=== PATIENT | male | born 1995 | race Caucasian/White ===

== ENCOUNTER 2017-03-29 17:26 | Emergency (ER) | payer OTHER ==
[2017-03-29 17:40] VITALS: BMI 37.0
[2017-03-29 17:47] VITALS: BP 125/83; RESP 18; TEMP 99.2
[2017-03-29] MEDS ORDERED: guaiFENesin 100 mg/5 ml Syrup UD PO STA (18:08)
[2017-03-29] MEDS ORDERED: guaiFENesin DM 100 mg-10 mg/5 ml UD ONE (18:14)
--- NOTE | 2017-03-29 18:14 | C.PDOC ---
History Of Present Illness 22 y/o male presents to the ED with complaints of nasal congestion, sore throat , dry nonproductive cough x3 days. Pt also reports subjective fever. Pt has not taken any cold or cough medicine. Pt smokes 1/2 ppd and marijuana. Girlfriend reports snoring and sleep apnea, daytime somnolence, poor sleep, trouble concentrating. Pt works in a warehouse. Denies chest pain, SOB, or any other complaints. Time Seen by Provider: 03/29/17 18:03 Chief Complaint (Nursing): Chest Pain History Per: Patient History/Exam Limitations: no limitations Onset/Duration Of Symptoms: Days Current Symptoms Are (Timing): Still Present Location Of Pain: Throat Associated Symptoms: Fever, Sore Throat, Cough, Nasal Congestion. denies: Sputum Severity: Mild Recent travel outside of the [place]: No Past Medical History Reviewed: Historical Data, Nursing Documentation, Vital Signs Vital Signs: Last Vital Signs Temp 99.2 F 03/29/17 17:41 Pulse 35 L 03/29/17 18:35 Resp 18 03/29/17 18:35 BP 125/83 03/29/17 17:41 Pulse Ox 97 03/29/17 18:35 - Medical History PMH: Asthma Family History: States: Unknown Family Hx - Social History Hx Tobacco Use: Yes Hx Alcohol Use: No Hx Substance Use: Yes - Immunization History Hx Tetanus Toxoid Vaccination: Yes Hx Influenza Vaccination: No Hx Pneumococcal Vaccination: No Review Of Systems Except As Marked, All Systems Reviewed And Found Negative. Constitutional: Positive for: Fever ENT: Positive for: Nose Congestion, Throat Pain Cardiovascular: Negative for: Chest Pain Respiratory: Positive for: Cough. Negative for: Shortness of Breath, Sputum Physical Exam - Physical Exam Appears: Non-toxic, No Acute Distress, Other (morbidly obese) Skin: Warm, Dry, No Rash Head: Atraumatic, Normacephalic Ear(s): Bilateral: Normal Nose: Normal Oral Mucosa: Moist Throat: No Erythema, No Exudate, Other (small oropharynx) Neck: Normal, Normal ROM, Supple Chest: Tenderness (digitally reproducible parasternal chest wall tenderness) Cardiovascular: Rhythm Regular, No Murmur Respiratory: No Rales, Rhonchi (scant), Wheezing (scant) Gastrointestinal/Abdominal: Normal Exam, Soft, No Tenderness Extremity: Bilateral: Atraumatic Neurological/Psych: Oriented x3, Normal Speech ED Course And Treatment O2 Sat by Pulse Oximetry: 98 (room air) Pulse Ox Interpretation: Normal Medical Decision Making Medical Decision Making: viral syndrome small OP s/s of sleep apnea corroborated by girlfriend classic s/s of ARIEL Disposition Doctor Will See Patient In The: Office Counseled Patient/Family Regarding: Studies Performed, Diagnosis - Disposition Referrals: [facility] [Outside] [facility] [Outside] Hitesh Martin MD [Staff Provider] - Disposition: HOME/ ROUTINE Disposition Time: 18:13 Condition: GOOD Additional Instructions: Dayquil and Nyquil for symptoms of viral syndrome Take Regularly and adequately. Curb smoking as much as possible to help relieve bronchial irritation Call Dr. Martin- Sleep Oil Deliverer- to arrange for a sleep study Will help with your concentration, weight loss, and to get restful sleep Return to ED or our [facility] as needed. Instructions: Viral Syndrome (ED) Forms: Work Excuse - Clinical Impression Clinical Impression: Chest discomfort, Viral syndrome, Sleep apnea in adult - Scribe Statement The provider has reviewed the documentation as recorded by the Robbinibcecy garcia Provider Attestation: All medical record entries made by the Scribe were at my direction and personally dictated by me. I have reviewed the chart and agree that the record accurately reflects my personal performance of the history, physical exam, medical decision making, and the department course for this patient. I have also personally directed, reviewed, and agree with the discharge instructions and disposition.
[2017-03-29 18:43] VITALS: PULSE 35
[2017-03-29 19:06] VITALS: O2SAT 98
--- NOTE | 2017-04-02 12:39 | CARD ---
APPROVED REPORT EKG Measurement Heart [id number] <Conclusion> Sinus bradycardia Nonspecific intraventricular conduction delay Borderline ECG
== END 2017-03-29 18:43 | disposition home or self-care (01) ==
LOC: C.ER 17:26
DX: B34.9 Viral infection, unspecified (principal); R07.89 Other chest pain; G47.30 Sleep apnea, unspecified

== ENCOUNTER 2017-09-22 10:59 | Emergency (ER) | payer OTHER ==
[2017-09-22 11:00] VITALS: BMI 37.0
[2017-09-22 11:17] VITALS: RESP 18
[2017-09-22] MEDS ORDERED: Albuterol-Ipratrop 3 mg / 0.5 (3 ml) UD INH STA ×2 (11:29→12:05)
[2017-09-22] MEDS ORDERED: Acetaminophen 160 mg/5 ml UD PO STA (11:29)
--- NOTE | 2017-09-22 11:37 | C.PDOC ---
History Of Present Illness 22 y/o male, with history of asthma, presents to the ER for evaluation of nasal congestion, left sided facial pressure, green nasal discharge, and cough which have been present for 3 days. Patient denies having a fever. Patient has no other medical complaints. Time Seen by Provider: 09/22/17 11:18 Chief Complaint (Nursing): Cough, Cold, Congestion History Per: Patient History/Exam Limitations: no limitations Onset/Duration Of Symptoms: Days Current Symptoms Are (Timing): Still Present Severity: Moderate Past Medical History Reviewed: Historical Data, Nursing Documentation, Vital Signs Vital Signs: Last Vital Signs Temp 97.8 F 09/22/17 13:12 Pulse 53 L 09/22/17 13:12 Resp 18 09/22/17 13:12 BP 118/75 09/22/17 13:12 Pulse Ox 100 09/23/17 11:51 - Medical History PMH: Asthma Surgical History: No Surg Hx Family History: States: No Known Family Hx - Social History Hx Tobacco Use: Yes Hx Alcohol Use: Yes Hx Substance Use: No - Immunization History Hx Tetanus Toxoid Vaccination: Yes Hx Influenza Vaccination: No Hx Pneumococcal Vaccination: No Review Of Systems Constitutional: Negative for: Fever, Chills ENT: Positive for: Nose Discharge (green nose discharge), Nose Congestion Respiratory: Positive for: Cough, Sputum (yellow sputum) Physical Exam - Physical Exam Appears: No Acute Distress, Other (WDWN) Skin: Normal Color, Warm Head: Atraumatic, Normacephalic, Tenderness (frontal sinuses tender) Eye(s): bilateral: Normal Inspection, PERRL, EOMI Ear(s): Bilateral: Normal Nose: Other (nose looks congested, boggy turbinates) Oral Mucosa: Moist Tongue: Normal Appearing Lips: Normal Appearing Throat: No Erythema, No Exudate Neck: Supple Lymphatic: No Adenopathy Cardiovascular: Rhythm Regular, No Murmur Respiratory: No Accessory Muscle Use, No Rales, No Rhonchi, Wheezing (bilateral scattered wheezing) Extremity: Normal ROM Neurological/Psych: Oriented x3, Normal Speech, Normal Cognition ED Course And Treatment O2 Sat by Pulse Oximetry: 100 (RA) Pulse Ox Interpretation: Normal Medical Decision Making Medical Decision Making: Impression: Cough and Congestion Plan: --Nebulizer Treatment --Tylenol 102 pm pt feeling much better after tylenol and nebulizer treatments. pt has inhaler at home. pt has mild scant wheezing that clears with productive cough; will d/c with steroids, z-paolo and sudafed, f/u pmd. Disposition Counseled Patient/Family Regarding: Diagnosis, Need For Followup, Rx Given - Disposition Referrals: [facility] [Outside] Disposition: HOME/ ROUTINE Disposition Time: 13:08 Condition: IMPROVED Additional Instructions: Please use your inhaler 2 puffs every 4-6 hours as needed. Take Zithromax as prescribed. Tylenol or Motrin for pain. Take sudafed 60 mg bymouth every 6 hours for nasal congestion. Some people get palpitations from this medicine- stop tasking it if you do. Take steroids as prescribed. Prescriptions: Acetaminophen [Tylenol 325mg tab] 650 mg PO Q6 #50 tab Azithromycin [Z-Paolo] 250 mg PO DAILY #6 tab predniSONE [predniSONE Tab] 2 tab PO DAILY #8 tab Pseudoephedrine HCl [Sudafed] 60 mg PO Q6 #30 tablet Instructions: Upper Respiratory Infection (ED) Forms: General Discharge Instructions, [facility] (Monegasque), Work Excuse - Clinical Impression Clinical Impression: Upper respiratory infection, Asthma exacerbation - PA / ART STUDIO TEACHER / Resident Statement MD/DO has reviewed & agrees with the documentation as recorded. - Scribe Statement The provider has reviewed the documentation as recorded by the Robbinibe Mark Mejía All medical record entries made by the Sosa were at my direction and personally dictated by me. I have reviewed the chart and agree that the record accurately reflects my personal performance of the history, physical exam, medical decision making, and the department course for this patient. I have also personally directed, reviewed, and agree with the discharge instructions and disposition.
[2017-09-22] MEDS ORDERED: Albuterol-Ipratrop 3 mg / 0.5 (3 ml) UD ONE ×2 (11:38→12:22)
[2017-09-22 13:13] VITALS: BP 118/75; PULSE 53; TEMP 97.8
[2017-09-22 13:19] VITALS: O2SAT 100
== END 2017-09-22 13:26 | disposition home or self-care (01) ==
LOC: C.ER 10:59
DX: J06.9 Acute upper respiratory infection, unspecified (principal); J45.901 Unspecified asthma with (acute) exacerbation; Z87.891 Personal history of nicotine dependence

== ENCOUNTER 2018-10-14 09:56 | Emergency (ER) | payer OTHER ==
[2018-10-14 09:57] VITALS: BMI 37.0
[2018-10-14 10:05] VITALS: BP 150/85; PULSE 96; RESP 20; TEMP 99.2; O2SAT 96
--- NOTE | 2018-10-14 10:52 | C.PDOC ---
History Of Present Illness Mr. Diaz is a 20 year old male with a PMHx of Asthma who presents with complaints of a tender bump he noticed while cleaning himself post bowel movement. He states the bump is firm and tender to touch. He denies ever having this complaint before. He denies any fever, chills, SOB, headache, chest pain, palpitations, abdominal pain, nausea, vomiting, changes in bowel habits, or urinary symptoms. ROS: As stated above PMHx: Asthma SocialHx 5 cigarettes daily for 5 years. Social etoH use, denies illicit drug use Allergies: NKDA Meds: Unspecified rescue inhaler FamHx: Diabetes - Uncle PSHx: Denies. PMD: Dr. Wu on [address] in [place] Time Seen by Provider: 10/14/18 10:41 Chief Complaint (Nursing): Abnormal Skin Integrity History Per: Patient Past Medical History Reviewed: Nursing Documentation, Vital Signs Vital Signs: Last Vital Signs Temp 99.2 F 10/14/18 10:04 Pulse 96 H 10/14/18 10:04 Resp 20 10/14/18 10:04 BP 150/85 10/14/18 10:04 Pulse Ox 96 10/14/18 10:04 - Medical History PMH: Asthma Family History: States: Unknown Family Hx - Social History Hx Tobacco Use: Yes Hx Alcohol Use: Yes Hx Substance Use: No - Immunization History Hx Tetanus Toxoid Vaccination: Yes Hx Influenza Vaccination: No Hx Pneumococcal Vaccination: No Review Of Systems Except As Marked, All Systems Reviewed And Found Negative. (As per HPI) Physical Exam - Physical Exam Appears: Well, Non-toxic, No Acute Distress Skin: Warm, Other Head: Atraumatic, Normacephalic Eye(s): bilateral: Normal Inspection Nose: Normal Oral Mucosa: Moist Tongue: Normal Appearing Lips: Normal Appearing Lymphatic: Normal Exam, No Inguinal Node Tenderness Cardiovascular: Rhythm Regular Respiratory: No Normal Breath Sounds, No Accessory Muscle Use, No Rales, No Rhonchi, No Stridor, Wheezing (Diffuse, B/L), No Plerual Rub Gastrointestinal/Abdominal: Soft, No Tenderness Extremity: No Pedal Edema Neurological/Psych: Oriented x3, Normal Speech, Normal Cognition Gait: Steady Additional Physical Exam Comments: 1x1cm Abscess, mildly erythematous, tender to palpation, in the left gluteal cleft proximal and inferior to rectum. Hard, non-fluctuant; no tracking into the rectum, ED Course And Treatment O2 Sat by Pulse Oximetry: 96 Medical Decision Making Medical Decision Making: Left Gluteal Abscess Mgmt Keflex 500mg QID for 10 days Warm Compress Patient to follow up with primary physician for ID when abscess is more fluctuant. Asthma Exacerbation Mgmt DuoNeb Tx ONCE Disposition - Disposition Disposition: HOME/ ROUTINE Disposition Time: 12:02 Condition: STABLE Prescriptions: Cephalexin [cephalexin] 500 mg PO QID 10 Days #40 cap Instructions: Skin Abscess, Asthma, Adult (DC) Forms: [facility] (Norwegian) - POA Present On Arrival: None - Clinical Impression Clinical Impression: Abscess, gluteal, left, Asthma exacerbation
[2018-10-14] MEDS ORDERED: Albuterol-Ipratrop 3 mg / 0.5 (3 ml) UD INH STA (11:34)
[2018-10-14] MEDS ORDERED: Albuterol-Ipratrop 3 mg / 0.5 (3 ml) UD ONE (12:11)
== END 2018-10-14 12:24 | disposition home or self-care (01) ==
LOC: C.ER 09:56
DX: L02.31 Cutaneous abscess of buttock (principal); J45.901 Unspecified asthma with (acute) exacerbation; F17.210 Nicotine dependence, cigarettes, uncomplicated

== ENCOUNTER 2018-10-14 20:11 | Emergency (ER) | payer OTHER ==
[2018-10-14 20:11] VITALS: BMI 37.0
[2018-10-14 20:24] VITALS: BP 132/84; PULSE 86; RESP 20; TEMP 99.2; O2SAT 96
== END 2018-10-14 20:31 | disposition left against medical advice (07) ==
LOC: C.ER 20:11
DX: Z02.89 Encounter for other administrative examinations (principal); L02.31 Cutaneous abscess of buttock